=== PATIENT | male | born 1955 | race Two or more races ===

== ENCOUNTER → 2019-09-08 | Outpatient (CLI) | payer MEDICARE ==
[~2019-09-08] MED LIST: OMNIPAQUE 350 MG/ML, 100ML BOTTLE ONE
== END | disposition home or self-care (01) ==
LOC: CFH 11:30
PROVIDERS: ATTEND Internal Medicine Cardiovascular Disease
DX: R06.02 Shortness of breath (principal); R07.89 Other chest pain
CPT/HCPCS: 71275; Q9967

== ENCOUNTER 2019-12-19 15:38 | Inpatient (IN) | payer MEDICARE ==
[~2019-12-19] VITALS: Ht 167.6 cm; Wt 111.1 kg
[2019-12-19] MEDS ORDERED: ACETAMINOPHEN 325 MG TABLET ONE (15:56)
--- NOTE | 2019-12-19 15:58 | NUR ---
PT MEDICATED FOR FEVER IN TRIAGE
[2019-12-19] MEDS ORDERED: ACETAMINOPHEN 325 MG TABLET PO ONE (16:00)
[2019-12-19 16:45] LABS: BASOPHILS # (AUTO) 0.02 x10^3/uL (0-0.1); BASOPHILS % (AUTO) 0 % (0-1); EOSINOPHILS # (AUTO) 0.02 x10^3/uL (0-0.4); EOSINOPHILS % (AUTO) 0 % (1-7); LYMPHOCYTES # (AUTO) 1.42 x10^3/uL (1-3.4); LYMPHOCYTES % (AUTO) 27 % (22-44); MD NO; MEAN CORPUSCULAR HGB CONC 33.5 g/dL (33.2-36.2); MEAN PLATELET VOLUME 8.4 fL (7.4-10.4); MONOCYTES # (AUTO) 0.39 x10^3/uL (0.2-0.8); MONOCYTES % (AUTO) 7 % (2-9); NEUTROPHILS # (AUTO) 3.44 x10^3/uL (1.8-6.8); NEUTROPHILS % (AUTO) 65 % (42-75); PLATELET COUNT 271 x10^3/uL (130-400); RED BLOOD COUNT 4.71 x10^6/uL (4.38-5.82); RED CELL DISTRIBUTION WIDTH 14.3 % (9.4-14.8)
[2019-12-19 16:53] LABS: ALANINE AMINOTRANSFERASE 31 U/L (12-78); ALBUMIN 3.3 g/dL (3.4-5.0); ANION GAP 12 mmol/L (5-15); CALCIUM 8.7 mg/dL (8.5-10.1); CHLORIDE 99 mmol/L (98-107); CREATININE 0.97 mg/dL (0.7-1.3)
[2019-12-19 16:55] LABS: ALKALINE PHOSPHATASE 71 U/L (45-117); BILIRUBIN,TOTAL 0.4 mg/dL (0.2-1.0); TOTAL PROTEIN 8.3 g/dL (6.4-8.2)
[2019-12-19 17:23] LABS: MICROSCOPIC INDICATED
[2019-12-19] MEDS ORDERED: CEFTRIAXONE PMX 1GM/50ML 50 ML IV ONE (17:30)
[2019-12-19] MEDS ORDERED: AZITHROMYCIN 500 MG in SODIUM CHLORIDE 0.9% 250 ML IV ONE (17:30)
[2019-12-19] MEDS ORDERED: CEFTRIAXONE PMX 1GM/50ML 50 ML ONE (17:52)
[2019-12-19] MEDS ORDERED: OXYcodone IR 5MG TABLET PO PRN (20:30)
[2019-12-19] MEDS ORDERED: PROMETHAZINE 25 MG/ML, 1ML IM PRN (20:30)
[2019-12-19] MEDS ORDERED: ACETAMINOPHEN 325 MG TABLET PO PRN (20:30)
[2019-12-19] MEDS ORDERED: ONDANSETRON ODT 4 MG PO PRN (20:30)
[2019-12-19] MEDS ORDERED: POLYETHYLENE GLYCOL 17 GM PACKET PO PRN (20:30)
[2019-12-19] MEDS ORDERED: ONDANSETRON 2MG/ML, 2ML IVPush PRN (20:30)
[2019-12-19] MEDS ORDERED: morphine SULFATE 10 MG/ML, 1ML IVPush PRN (20:30)
[2019-12-19] MEDS ORDERED: BISACODYL 10 MG SUPP PR PRN (20:30)
[2019-12-19] MEDS ORDERED: hydrALAzine 20 MG/ML, 1ML IVPush PRN (20:30)
[2019-12-19] MEDS: ENOXAPARIN 40 MG/0.4 ML SQ SCH (21:22)
[2019-12-19] MEDS: SODIUM CHLORIDE 0.9% 1,000 ML IV SCH (21:22)
[2019-12-20 00:51] VITALS: BP 98/60
[2019-12-20 05:56] LABS: BASOPHILS # (AUTO) 0.02 x10^3/uL (0-0.1); BASOPHILS % (AUTO) 0 % (0-1); EOSINOPHILS # (AUTO) 0.01 x10^3/uL (0-0.4); EOSINOPHILS % (AUTO) 0 % (1-7); LYMPHOCYTES # (AUTO) 1.29 x10^3/uL (1-3.4); LYMPHOCYTES % (AUTO) 26 % (22-44); MD NO; MEAN CORPUSCULAR HEMOGLOBIN 29.6 pg (27.5-34.5); MEAN CORPUSCULAR HGB CONC 32.9 g/dL (33.2-36.2); MEAN PLATELET VOLUME 8.2 fL (7.4-10.4); MONOCYTES # (AUTO) 0.33 x10^3/uL (0.2-0.8); MONOCYTES % (AUTO) 7 % (2-9); NEUTROPHILS # (AUTO) 3.25 x10^3/uL (1.8-6.8); NEUTROPHILS % (AUTO) 66 % (42-75); PLATELET COUNT 271 x10^3/uL (130-400); RED BLOOD COUNT 4.35 x10^6/uL (4.38-5.82); RED CELL DISTRIBUTION WIDTH 14.4 % (9.4-14.8)
[2019-12-20] MEDS: SODIUM CHLORIDE 0.9% 1,000 ML IV SCH (06:03)
[2019-12-20 06:07] LABS: CHLORIDE 102 mmol/L (98-107)
[2019-12-20 06:22] LABS: ALANINE AMINOTRANSFERASE 24 U/L (12-78); ALKALINE PHOSPHATASE 64 U/L (45-117); ANION GAP 7 mmol/L (5-15); BILIRUBIN,TOTAL 0.4 mg/dL (0.2-1.0); CALCIUM 8.6 mg/dL (8.5-10.1); CHOL/HDL RATIO 3.3; CHOLESTEROL, TOTAL 112 mg/dL (140-239); CREATININE 0.76 mg/dL (0.7-1.3); HDL CHOL % 30 % (26-37); HDL CHOLESTEROL (DIRECT) 34 mg/dL (40-60); LDL CHOLESTEROL,CALCULATED 48 mg/dL (54-169); LDL/HDL RATIO 1.4 (0.5-3.0); TOTAL PROTEIN 7.6 g/dL (6.4-8.2); TRIGLYCERIDES 150 mg/dL (50-200); VLDL CHOLESTEROL 30 mg/dL (0-25)
[2019-12-20 07:08] VITALS: BP 125/83
[2019-12-20 12:25] VITALS: BP 138/89
[2019-12-20] MEDS ORDERED: ATOR20TA86 PO (13:28)
[2019-12-20] MEDS ORDERED: LISI-424 PO (13:31)
[2019-12-20] MEDS ORDERED: METF10007 PO (13:31)
[2019-12-20] MEDS: AZITHROMYCIN 500 MG TABLET PO SCH (15:47)
[2019-12-20] MEDS: CEFTRIAXONE PMX 2GM/50ML 50 ML IV SCH (15:48)
[2019-12-20 18:28] LABS: CLOSTRIDIUM DIFFICILE ANTIGEN NEGATIVE; CLOSTRIDIUM DIFFICILE TOXIN NEGATIVE (Negative)
[2019-12-20 20:21] VITALS: BP 123/71
[2019-12-20] MEDS: ENOXAPARIN 40 MG/0.4 ML SQ SCH (20:51)
[2019-12-20] MEDS: ATORVASTATIN 20 MG TABLET PO SCH (20:51)
[2019-12-21 01:22] VITALS: BP 135/80
[2019-12-21 08:34] VITALS: BP 111/67
[2019-12-21] MEDS: AZITHROMYCIN 500 MG TABLET PO SCH (08:36)
[2019-12-21] MEDS ORDERED: LISINOPRIL 5 MG TABLET PO SCH (09:00)
[2019-12-21 12:53] VITALS: BP 108/68
[2019-12-21] MEDS: CEFTRIAXONE PMX 2GM/50ML 50 ML IV SCH (15:20)
[2019-12-21] MEDS: ASCORBIC ACID 500 MG TABLET PO SCH (17:46)
[2019-12-21 19:33] VITALS: BP 112/68
[2019-12-21] MEDS: ENOXAPARIN 40 MG/0.4 ML SQ SCH (20:30)
[2019-12-21] MEDS: DEXAMETHASONE 4 MG/ML, 1ML IVPush SCH (20:48)
[2019-12-21] MEDS: THIAMINE 100MG TABLET PO SCH (20:48)
[2019-12-21] MEDS: ATORVASTATIN 20 MG TABLET PO SCH (20:48)
[2019-12-21] MEDS: MELATONIN 3 MG TABLET PO PRN (20:48)
[2019-12-22 01:20] VITALS: BP 116/76
[2019-12-22 08:37] VITALS: BP 123/85
[2019-12-22] MEDS: ZINC SULFATE 220 MG CAPSULE PO SCH (09:09)
[2019-12-22] MEDS: AZITHROMYCIN 500 MG TABLET PO SCH (09:09)
[2019-12-22] MEDS: CHOLECALCIFEROL 5,000u TAB PO SCH (09:10)
[2019-12-22] MEDS: DEXAMETHASONE 4 MG/ML, 1ML IVPush SCH ×2 (09:10→20:29)
[2019-12-22] MEDS: ASCORBIC ACID 500 MG TABLET PO SCH ×2 (09:10→16:34)
[2019-12-22] MEDS: THIAMINE 100MG TABLET PO SCH ×2 (09:10→20:29)
[2019-12-22] MEDS: LISINOPRIL 5 MG TABLET PO SCH (09:10)
[2019-12-22 13:20] VITALS: BP 126/82
[2019-12-22] MEDS: CEFTRIAXONE PMX 2GM/50ML 50 ML IV SCH (15:25)
[2019-12-22 19:47] VITALS: BP 124/74
[2019-12-22] MEDS: ENOXAPARIN 40 MG/0.4 ML SQ SCH (20:29)
[2019-12-22] MEDS: MELATONIN 3 MG TABLET PO PRN (20:29)
[2019-12-22] MEDS: ATORVASTATIN 20 MG TABLET PO SCH (20:29)
[2019-12-23 01:18] VITALS: BP 122/77
[2019-12-23 07:45] VITALS: BP 138/83
[2019-12-23] MEDS: ZINC SULFATE 220 MG CAPSULE PO SCH (09:02)
[2019-12-23] MEDS: ASCORBIC ACID 500 MG TABLET PO SCH ×2 (09:02→17:15)
[2019-12-23] MEDS: DEXAMETHASONE 4 MG/ML, 1ML IVPush SCH ×2 (09:02→20:13)
[2019-12-23] MEDS: AZITHROMYCIN 500 MG TABLET PO SCH (09:02)
[2019-12-23] MEDS: THIAMINE 100MG TABLET PO SCH ×2 (09:02→20:13)
[2019-12-23] MEDS: LISINOPRIL 5 MG TABLET PO SCH (09:03)
[2019-12-23] MEDS: CHOLECALCIFEROL 5,000u TAB PO SCH (09:03)
[2019-12-23 14:15] VITALS: BP 118/75
[2019-12-23] MEDS: CEFTRIAXONE PMX 2GM/50ML 50 ML IV SCH (16:03)
[2019-12-23 19:52] VITALS: BP 101/61
[2019-12-23] MEDS: ATORVASTATIN 20 MG TABLET PO SCH (20:13)
[2019-12-23] MEDS: MELATONIN 3 MG TABLET PO PRN (20:13)
[2019-12-23] MEDS: ENOXAPARIN 40 MG/0.4 ML SQ SCH (20:13)
[2019-12-23] MEDS: DOCUSATE 100 MG CAPSULE PO PRN (20:13)
[2019-12-24 01:22] VITALS: BP 103/60
[2019-12-24 08:19] VITALS: BP 118/78
[2019-12-24] MEDS: THIAMINE 100MG TABLET PO SCH ×2 (08:27→20:07)
[2019-12-24] MEDS: ZINC SULFATE 220 MG CAPSULE PO SCH (08:27)
[2019-12-24] MEDS: ASCORBIC ACID 500 MG TABLET PO SCH ×2 (08:27→17:06)
[2019-12-24] MEDS: LISINOPRIL 5 MG TABLET PO SCH (08:27)
[2019-12-24] MEDS: AZITHROMYCIN 500 MG TABLET PO SCH (08:27)
[2019-12-24] MEDS: CHOLECALCIFEROL 5,000u TAB PO SCH (08:27)
[2019-12-24] MEDS: DOCUSATE 100 MG CAPSULE PO PRN (08:27)
[2019-12-24] MEDS: DEXAMETHASONE 4 MG/ML, 1ML IVPush SCH (08:28)
[2019-12-24] MEDS ORDERED: DEXAMETHASONE 4 MG/ML, 1ML IVPush SCH (09:30)
[2019-12-24] MEDS ORDERED: DEXAMETHASONE 10 MG in SODIUM CHLORIDE 0.9% 50 ML IV SCH (10:00)
[2019-12-24 12:26] VITALS: BP 127/84
[2019-12-24] MEDS: CEFTRIAXONE PMX 2GM/50ML 50 ML IV SCH (15:42)
[2019-12-24] MEDS: INSULIN LISPRO 100 UNITS/ML, PEN SQ-INSULIN SCH ×2 (17:06→20:25)
[2019-12-24] MEDS: ENOXAPARIN 40 MG/0.4 ML SQ SCH (20:06)
[2019-12-24] MEDS: ATORVASTATIN 20 MG TABLET PO SCH (20:07)
[2019-12-24] MEDS: MELATONIN 3 MG TABLET PO PRN (20:07)
[2019-12-24 20:24] VITALS: BP 106/61
[2019-12-25 00:46] VITALS: BP 124/74
[2019-12-25 07:01] VITALS: BP 144/78
[2019-12-25] MEDS: AZITHROMYCIN 500 MG TABLET PO SCH (08:48)
[2019-12-25] MEDS: ZINC SULFATE 220 MG CAPSULE PO SCH (08:48)
[2019-12-25] MEDS: ASCORBIC ACID 500 MG TABLET PO SCH (08:48)
[2019-12-25] MEDS: THIAMINE 100MG TABLET PO SCH (08:48)
[2019-12-25] MEDS: LISINOPRIL 5 MG TABLET PO SCH (08:48)
[2019-12-25] MEDS: INSULIN LISPRO 100 UNITS/ML, PEN SQ-INSULIN SCH ×2 (08:48→12:12)
[2019-12-25] MEDS: CHOLECALCIFEROL 5,000u TAB PO SCH (08:49)
[2019-12-25] MEDS ORDERED: THIA100T67 PO (12:23)
[2019-12-25] MEDS ORDERED: ZINC220C7 PO (12:23)
[2019-12-25] MEDS ORDERED: ASCO500T9 PO (12:23)
[2019-12-25] MEDS ORDERED: CHOL500045 PO (12:23)
[2019-12-25] MEDS ORDERED: AZIT500T10 PO (12:23)
[2019-12-25] MEDS ORDERED: AMOX1TAB64 PO (12:23)
[2019-12-25 12:31] VITALS: BP 131/80
[2019-12-25] MEDS: CEFTRIAXONE PMX 2GM/50ML 50 ML IV SCH (15:00)
== END 2019-12-25 16:07 | disposition home or self-care (01) | DRG 177 ==
LOC: ED 20:44 → 4EST 20:46
PROVIDERS: ADMIT Internal Medicine; ATTEND Internal Medicine
PROC: 5A09357 Assistance with Respiratory Ventilation, Less than 24 Consecutive Hours, Continuous Positive Airway Pressure (ICD-10-PCS; 2019-12-23)
PROC: 5A09457 Assistance with Respiratory Ventilation, 24-96 Consecutive Hours, Continuous Positive Airway Pressure (ICD-10-PCS; principal; 2019-12-24)
DX: U07.1 COVID-19 (principal); J96.21 Acute and chronic respiratory failure with hypoxia; J12.89 Other viral pneumonia; J44.0 Chronic obstructive pulmonary disease with (acute) lower respiratory infection; Z99.11 Dependence on respirator [ventilator] status; E66.01 Morbid (severe) obesity due to excess calories; E11.9 Type 2 diabetes mellitus without complications; G47.33 Obstructive sleep apnea (adult) (pediatric); I10 Essential (primary) hypertension; Z87.01 Personal history of pneumonia (recurrent); Z99.81 Dependence on supplemental oxygen; Z68.39 Body mass index [BMI] 39.0-39.9, adult; Z79.899 Other long term (current) drug therapy
CPT/HCPCS: 36415; 36600; 71045; 80053; 80061; 81001; 82803; 82962; 83036; 83605; 83735; 83880; 84443; 85025; 87040; 87324; 87635; 89055; 93005; 94660; 96365; 96368; G0378; J0456; J0696; J1100; J1650; J1815; J7030; J7050